=== PATIENT | female | born 1960 | race Caucasian/White ===

== ENCOUNTER → 2020-10-19 | Outpatient (CLI) | payer SELFPAY ==
--- NOTE | 2020-10-19 14:55 | RAD ---
XR LUMBAR SPINE 2-3V DATE: 10/19/2020 11:20 AM INDICATION: Reason: BACK PAIN / Spl. Instructions: / History: COMPARISON: None. FINDINGS: Five non-rib bearing lumbar-type vertebral bodies are present. Bones/Alignment: Age-indeterminate L1 compression deformity with 40 percent loss of vertebral body he ight. There is no listhesis. Joints: Mild degenerative disc disease. Lower lumbar facet arthropathy. Miscellaneous: Atherosclerotic vascular calcifications IMPRESSION: 1. Age-indeterminate L1 compression deformity. Correlate for focal tenderness. 2. Mild lumbar spondylosis. Electronically signed by: Nghia Taylor MD (10/19/2020 2:52 PM) [id number]
== END ==
LOC: RAD 10:59
DX: M47.816 Spondylosis without myelopathy or radiculopathy, lumbar region (principal); M51.36 Other intervertebral disc degeneration, lumbar region; M12.88 Other specific arthropathies, not elsewhere classified, other specified site; I70.90 Unspecified atherosclerosis
CPT/HCPCS: 72100